=== PATIENT | male | born 1950 | race Caucasian/White ===

== ENCOUNTER 2018-05-03 10:59 | Emergency (ER) | payer MEDICARE, BC ==
[2018-05-03 11:12] VITALS: TEMP 97.9
--- NOTE | 2018-05-03 11:36 | ED ---
General Adult HPI - General Chief complaint: Arrhythmia/Palpitations Stated complaint: irreg heart beat Time Seen by Provider: 05/03/18 11:00 Source: patient, RN notes reviewed Mode of arrival: wheelchair Limitations: no limitations - History of Present Illness Initial comments: This is a 67-year-old male who presents to the emergency department complaining of palpitations. Patient states he has a history of PVCs. Patient states these palpitations come and go but they're much more frequent than normal and they are consistent with his PVCs. Patient denies any chest pain or difficulty breathing or shortness of breath. Patient denies any abdominal pain patient denies nausea vomiting diarrhea. Patient denies headache patient denies numbness weakness. Patient denies lightheadedness or dizziness. Patient denies any recent fever chills. Patient states he drinks a bottle of wine every night. Patient denies any smoking patient denies any increased caffeine intake patient denies any drug use patient denies any gyhp-[id number] decongestants. - Related Data Home Medications Medication Instructions Recorded Confirmed Aspirin EC [Ecotrin] 325 mg PO DAILY 05/03/18 05/03/18 Atorvastatin [Lipitor] 40 mg PO DAILY 05/03/18 05/03/18 Hydrochlorothiazide [Hydrodiuril] 25 mg PO DAILY 05/03/18 05/03/18 Ramipril [Altace] 5 mg PO DAILY 05/03/18 05/03/18 Allergies Allergy/AdvReac Type Severity Reaction Status Date / Time No Known Allergies Allergy Verified 05/03/18 11:11 Review of Systems ROS Statement: Those systems with pertinent positive or pertinent negative responses have been documented in the HPI. ROS Other: All systems not noted in ROS Statement are negative. 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 Patient is nontoxic and well- hydrated and is in no acute distress. ENT: Neck is soft and supple. No significant lymphadenopathy is noted. Oropharynx is clear. Moist mucous membranes. Neck has full range of motion without eliciting any pain. EYES: The sclera were anicteric and conjunctiva were pink and moist. Extraocular movements were intact and pupils were equal round and reactive to light. Eyelids were unremarkable. PULMONARY: Unlabored respirations. Good breath sounds bilaterally. No audible rales rhonchi or wheezing was noted. CARDIOVASCULAR: There is a regular rate and rhythm without any murmurs gallops or rubs. Patient is having extrasystoles about every 5-10 seconds ABDOMEN: Soft and nontender with normal bowel sounds. No palpable organomegaly was noted. There is no palpable pulsatile mass. SKIN: Skin is clear with no lesions or rashes and otherwise unremarkable. NEUROLOGIC: Patient is alert and oriented x3. Cranial nerves II through XII are grossly intact. Motor and sensory are also intact. Normal speech, volume and content. Symmetrical smile. MUSCULOSKELETAL: Normal extremities with adequate strength and full range of motion. No lower extremity swelling or edema. No calf tenderness. LYMPHATICS: No significant lymphadenopathy is noted PSYCHIATRIC: Normal psychiatric evaluation. Limitations: no limitations Course Vital Signs 05/03/18 11:08 Temperature 97.9 F Pulse Rate 69 Respiratory 18 Rate Blood Pressure 154/68 O2 Sat by Pulse 99 Oximetry Medical Decision Making - Medical Decision Making EKG shows sinus rhythm with frequent PVCs at a rate of 66 bpm AR interval is 1: 30 QRS is 88 QT interval 448 QTC is 469. Patient's EKG shows no ST segment elevation or depression or T wave abnormalities are noted. Chest x-ray shows no acute abnormality. Patient an ounces when he feels a palpitation and is correlating with the PVCs therefore believe he is feeling his PVCs suggested. Be more frequent than normal. - Lab Data Result diagrams: 05/03/18 11:30 05/03/18 11:30 Lab Results 05/03/18 05/03/18 05/03/18 Range/Units 11:30 11:30 11:30 WBC 6.1 (3.8-10.6) k/uL RBC 4.32 (4.30-5.90) m/uL Hgb 14.1 (13.0-17.5) gm/dL Hct 42.3 (39.0-53.0) % MCV 97.9 D (80.0-100.0) fL MCH 32.6 (25.0-35.0) pg MCHC 33.3 (31.0-37.0) g/dL RDW 13.0 (11.5-15.5) % Plt Count 203 (150-450) k/uL Neutrophils % 55 % Lymphocytes % 31 % Monocytes % 7 % Eosinophils % 4 % Basophils % 1 % Neutrophils # 3.4 (1.3-7.7) k/uL Lymphocytes # 1.9 (1.0-4.8) k/uL Monocytes # 0.4 (0-1.0) k/uL Eosinophils # 0.2 (0-0.7) k/uL Basophils # 0.0 (0-0.2) k/uL PT (9.0-12.0) sec INR (<1.2) APTT (22.0-30.0) sec Sodium 139 (137-145) mmol/L Potassium 4.0 (3.5-5.1) mmol/L Chloride 103 (98-107) mmol/L Carbon Dioxide 28 (22-30) mmol/L Anion Gap 8 mmol/L BUN 16 (9-20) mg/dL Creatinine 0.75 (0.66-1.25) mg/dL Est GFR (CKD-EPI)AfAm >90 (>60 ml/min/1.73 sqM) Est GFR (CKD-EPI)NonAf >90 (>60 ml/min/1.73 sqM) Glucose 102 H (74-99) mg/dL Calcium 9.6 (8.4-10.2) mg/dL Magnesium 2.1 (1.6-2.3) mg/dL Total Bilirubin 0.9 (0.2-1.3) mg/dL AST 30 (17-59) U/L ALT 29 (21-72) U/L Alkaline Phosphatase 60 (38-126) U/L Total Creatine Kinase 101 (55-170) U/L CK-MB (CK-2) 1.2 (0.0-2.4) ng/mL CK-MB (CK-2) Rel Index 1.2 Troponin I <0.012 (0.000-0.034) ng/mL Total Protein 6.8 (6.3-8.2) g/dL Albumin 4.2 (3.5-5.0) g/dL TSH 1.850 (0.465-4.680) mIU/L Free T4 1.13 (0.78-2.19) ng/dL 05/03/18 Range/Units 11:30 WBC (3.8-10.6) k/uL RBC (4.30-5.90) m/uL Hgb (13.0-17.5) gm/dL Hct (39.0-53.0) % MCV (80.0-100.0) fL MCH (25.0-35.0) pg MCHC (31.0-37.0) g/dL RDW (11.5-15.5) % Plt Count (150-450) k/uL Neutrophils % % Lymphocytes % % Monocytes % % Eosinophils % % Basophils % % Neutrophils # (1.3-7.7) k/uL Lymphocytes # (1.0-4.8) k/uL Monocytes # (0-1.0) k/uL Eosinophils # (0-0.7) k/uL Basophils # (0-0.2) k/uL PT 10.9 (9.0-12.0) sec INR 1.1 (<1.2) APTT 23.1 (22.0-30.0) sec Sodium (137-145) mmol/L Potassium (3.5-5.1) mmol/L Chloride (98-107) mmol/L Carbon Dioxide (22-30) mmol/L Anion Gap mmol/L BUN (9-20) mg/dL Creatinine (0.66-1.25) mg/dL Est GFR (CKD-EPI)AfAm (>60 ml/min/1.73 sqM) Est GFR (CKD-EPI)NonAf (>60 ml/min/1.73 sqM) Glucose (74-99) mg/dL Calcium (8.4-10.2) mg/dL Magnesium (1.6-2.3) mg/dL Total Bilirubin (0.2-1.3) mg/dL AST (17-59) U/L ALT (21-72) U/L Alkaline Phosphatase (38-126) U/L Total Creatine Kinase (55-170) U/L CK-MB (CK-2) (0.0-2.4) ng/mL CK-MB (CK-2) Rel Index Troponin I (0.000-0.034) ng/mL Total Protein (6.3-8.2) g/dL Albumin (3.5-5.0) g/dL TSH (0.465-4.680) mIU/L Free T4 (0.78-2.19) ng/dL Disposition Clinical Impression: Ventricular premature beats Disposition: HOME SELF-CARE Condition: Good Instructions: Premature Ventricular Contractions (ED) Additional Instructions: . Patient should return to emergency department for any new or worsening symptoms. Patient should reduce the alcohol intake Is patient prescribed a controlled substance at d/c from ED?: No Referrals: Cayden Bernabe MD [Primary Care Provider] - 1-2 days Time of Disposition: 12:43
--- NOTE | 2018-05-03 11:54 | XR ---
EXAMINATION TYPE: XR chest 2V DATE OF EXAM: 05/03/2018 HISTORY: dysrhythmia. REFERENCE: NONE. FINDINGS: The lungs are overinflated but clear. Pleural space are clear. The heart is not enlarged. IMPRESSION: COPD.
[2018-05-03 12:03] LABS: Basophils % (A) 1 %; Eosinophils # (A) 0.2 k/uL (0-0.7); Eosinophils % (A) 4 %; HCT 42.3 % (39.0-53.0); HGB 14.1 gm/dL (13.0-17.5); Lymphocytes # (A) 1.9 k/uL (1.0-4.8); Lymphocytes % (A) 31 %; MCH 32.6 pg (25.0-35.0); MCHC 33.3 g/dL (31.0-37.0); Monocytes # (A) 0.4 k/uL (0-1.0); Monocytes % (A) 7 %; Neutrophils # (A) 3.4 k/uL (1.3-7.7); Neutrophils % (A) 55 %; Platelet Count 203 k/uL (150-450); RBC 4.32 m/uL (4.30-5.90); WBC 6.1 k/uL (3.8-10.6)
[2018-05-03 12:07] LABS: MCV 97.9 fL (80.0-100.0)
[2018-05-03 12:10] LABS: ALT 29 U/L (21-72); AST 30 U/L (17-59); Albumin 4.2 g/dL (3.5-5.0); Alkaline Phosphatase 60 U/L (38-126); Anion Gap 8 mmol/L; Blood Urea Nitrogen 16 mg/dL (9-20); Calcium 9.6 mg/dL (8.4-10.2); Carbon Dioxide 28 mmol/L (22-30); Chloride 103 mmol/L (98-107); Glucose 102 mg/dL (74-99); Magnesium 2.1 mg/dL (1.6-2.3); Sodium 139 mmol/L (137-145); Total Bilirubin 0.9 mg/dL (0.2-1.3); Total Protein 6.8 g/dL (6.3-8.2)
[2018-05-03 12:12] LABS: INR 1.1 (<1.2); Partial Thromboplastin Time 23.1 sec (22.0-30.0); Prothrombin Time 10.9 sec (9.0-12.0)
[2018-05-03 12:21] LABS: Creatine Kinase 101 U/L (55-170)
[2018-05-03 12:26] LABS: T4, Free (Free Thyroxine) 1.13 ng/dL (0.78-2.19)
[2018-05-03 12:34] LABS: Creatine Kinase MB 1.2 ng/mL (0.0-2.4); Troponin I <0.012 ng/mL (0.000-0.034)
[2018-05-03 13:02] VITALS: BP 135/73; PULSE 58; RESP 16
== END 2018-05-03 13:00 | disposition home or self-care (01) ==
LOC: EC 10:59
DX: I49.3 Ventricular premature depolarization (principal); E78.5 Hyperlipidemia, unspecified; I10 Essential (primary) hypertension; Z79.82 Long term (current) use of aspirin; Z79.899 Other long term (current) drug therapy
CPT/HCPCS: 36415; 71046; 80053; 82550; 82553; 83735; 84439; 84443; 84484; 85025; 85610; 85730; 93005; 99285

== ENCOUNTER → 2018-07-10 | Outpatient (CLI) | payer MEDICARE, BC ==
--- NOTE | 2018-07-10 13:42 | CONS ---
CONSULTATION DATE OF SERVICE: 07/10/2018 A 67-year-old gentleman has been evaluated in the sleep center for possible obstructive sleep apnea-hypopnea syndrome. HISTORY OF PRESENT ILLNESS/SLEEP-WAKE EVALUATION: Patient usual sleep schedule from 10 p.m. until 7:38 a.m. Usually no problems with falling asleep. She sleeps on the side position. Does not have TV in bedroom. According to his , he snores and has episodes of stopped breathing during the sleep, especially after using alcohol. He wakes up from sleep up to 3 times with nocturia. No history of hypnagogic hallucinations, sleep paralysis or cataplexy. During the sleep, his heart rate goes down to 40. The patient has history of cardiac arrhythmia several months ago with significant amount of extra systoles and it was active for several weeks. [place] Sleepiness Scale is 4. Usually patient does not take any naps. 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 PAST SURGICAL HISTORY: Surgical treatment of squamous cell carcinoma and some surgery history of the skin of the patient's head, probably benign. Patient does not know the exact diagnosis. MEDICATIONS: Ramipril, hydrochlorothiazide atorvastatin, aspirin. SOCIAL HISTORY: Negative for smoking. Alcohol consumption: Presently patient decreased amount of alcohol from one bottle at night to two glasses of wine at night. FAMILY HISTORY: Hypertension, angina, heart problems, hyperlipidemia, cancer. REVIEW OF SYSTEMS: Awakenings from sleep up to 3 times with nocturia, episodes of bradycardia and cardiac arrhythmia. PHYSICAL EXAMINATION: During physical exam, a gentleman without distress. VITAL SIGNS: BP 131/78, HR 63, RR 14, height 5-1/2, weight 130.8, body mass index 19.4, temperature 98.3, oxygen saturation at room air 100%. HEENT: PERRLA, EOMI. Oropharynx low position of soft palate, short distance between soft palate and posterior pharyngeal wall. Neck is 14 inches in circumference. LUNGS: Clear to percussion and to auscultation. Good air exchange. No wheezing or rhonchi. HEART: S1, S2 regular. No murmurs, gallops, or rubs. ABDOMEN: Soft and nontender. Bowel sounds are present. No organomegaly appreciated. EXTREMITIES: No clubbing or cyanosis. DIAGNOSTIC TECH: Awake, alert, and oriented X3. Cranial nerves 2 to 7 intact. There is no fasciculation or atrophy. noted. No focal deficits observed. IMPRESSION: 1. Snoring, witnessed episodes of stopped breathing during the sleep. Small oropharyngeal air space awakenings from sleep with nocturia of possible obstructive sleep apnea-hypopnea syndrome. 2. History of cardiac arrhythmia. 3. Obesity. 4. Hypertension. 5. Hyperlipidemia. 6. Status post surgical treatment of squamous cell carcinoma of the skin of right leg. 7. Status post skin surgery on the head. PLAN: 1. Polysomnography for evaluation of patient's breathing during sleep. 2. CPAP/BiPAP titration if sleep study confirms obstructive sleep apnea-hypopnea syndrome. 3. Preferable position during sleep on the side. 4. No driving if patient feels any sleepiness. 5. I will see patient for follow up visit to explain results of testing and following plan. Thank you very much for referring this patient for consultation. Sincerely, Hilton Jiang MD, PhD, FAASM Diplomat of [place] [employer] [place] [employer] Assistant of [facility] [place] MMODL / DREN: [id number] /
== END | disposition home or self-care (01) ==
LOC: SLEEP 11:36
PROVIDERS: ATTEND Internal Medicine
DX: R06.83 Snoring (principal); R35.1 Nocturia; J39.2 Other diseases of pharynx; I49.9 Cardiac arrhythmia, unspecified; E66.9 Obesity, unspecified; I10 Essential (primary) hypertension; E78.5 Hyperlipidemia, unspecified; Z85.828 Personal history of other malignant neoplasm of skin; Z98.890 Other specified postprocedural states; Z79.82 Long term (current) use of aspirin; Z79.899 Other long term (current) drug therapy; Z68.1 Body mass index [BMI] 19.9 or less, adult
CPT/HCPCS: 99211

== ENCOUNTER → 2021-08-07 | Outpatient (CLI) | payer MEDICARE, BC ==
--- NOTE | 2021-08-07 18:52 | US ---
EXAMINATION TYPE: US st tissue neck DATE OF EXAM: 08/07/2021 COMPARISON: NONE CLINICAL HISTORY: 70-year-old male R22.1 NECK MASS. Team Member notes: Patient states physician felt that he had possible enlarged lateral neck masses. TECHNIQUE: Targeted ultrasound examination along the lateral aspect of both sides of the neck. FINDINGS: No enlarged lymph notes. No abnormal mass is identified. No abnormal fluid collection. IMPRESSION: NO SUSPICIOUS LYMPHADENOPATHY OR MASS IS SONOGRAPHICALLY IDENTIFIED ON EITHER SIDE OF THE NECK. IF TH ERE IS A PERSISTENT OR ENLARGING PALPABLE ABNORMALITY BY CLINICAL ASSESSMENT, CONSIDER CONTRAST ENHAN RADHA CT NECK.
== END | disposition home or self-care (01) ==
LOC: RADUSWWP 15:32
PROVIDERS: ATTEND Family Medicine
DX: R22.1 Localized swelling, mass and lump, neck (principal)
CPT/HCPCS: 76536

== ENCOUNTER → 2023-10-09 | Outpatient (CLI) | payer MEDICARE ==
--- NOTE | 2023-10-09 11:02 | MR ---
EXAMINATION TYPE: MR Prostate wo/w con DATE OF EXAM: 10/09/2023 8:10 AM COMPARISON: None. CLINICAL INDICATION:Male, 72 years old with history of C61 Prostate; Prostate cancer. TECHNIQUE: Multi-planar, multi-sequence imaging of the pelvis is performed prior to and following the uncomplicated administration of bolus intravenous gadolinium. CONTRAST: 6 Gadavist Interpretive Criteria: PI-RADS v2.1 SERUM PSA: 4.07 on 08/17/2023. 3.51 on 02/11/2023. SURGICAL PATHOLOGY: Positive biopsy 10/06/2021 involving the majority of the biopsy samples. FINDINGS: Prostatic dimensions: 5.2 x 4.3 x 3.0 cm. "Bullet" Volume:43.90 (PSA density=0.09 ng/mL/mL) CENTRAL GLAND (Central and Transition Zones/CZ+TZ): Multiple bilateral, heterogenous appearing hypertrophic stromal nodules, without suspicious lesion. M edian lobe hypertrophy with protrusion into the base of the bladder. (PI-RADS 2) PERIPHERAL ZONE (PZ): Bilateral linear, indistinct wedgelike areas of low ADC, and low T2 signal, No evidence of masslike a bnormality, or localized perfusional hypervascularity, to further suggest a focus of clinically signi ficant prostate cancer. (PI-RADS 2) SEMINAL VESICLES (SV): Symmetric and unremarkable. PERIPROSTATIC TISSUES: Unremarkable. LYMPH NODES: There is a prominent left pelvic sidewall lymph node measuring up to 5 mm. REMAINING PELVIS: Bladder wall is within normal limits given distention. No abnormal free or organized intrapelvic fluid collection. No pathologic bowel dilation or mural thickening. No hernia visualized OSSEOUS STRUCTURES: No suspicious osseous abnormality. IMPRESSION: 1. No specific features for high-risk prostate cancer. Maximum PI-RADS score: 2. 2. Left pelvic sidewall lymph node consider PET/CTs gallium-68 PSMA scan to evaluate for metabolic up take. 3. Mild BPH, estimated gland volume 43.90 mL.
== END | disposition home or self-care (01) ==
LOC: RADMRIMAIN 07:02
PROVIDERS: ATTEND Urology
DX: C61 Malignant neoplasm of prostate (principal); N40.0 Benign prostatic hyperplasia without lower urinary tract symptoms
CPT/HCPCS: 72197; A9585

== ENCOUNTER → 2024-09-04 | Outpatient (CLI) | payer MEDICARE ==
--- NOTE | 2024-09-04 16:27 | US ---
EXAMINATION TYPE: US carotid duplex BILAT DATE OF EXAM: 09/04/2024 COMPARISON: NONE CLINICAL INDICATION: Male, 73 years old with history of I65.23 STENOSIS; Additional History: .... TECHNIQUE: Grayscale, color Doppler and spectral Doppler evaluation of the bilateral carotid systems and vertebral arteries. Indirect Doppler criteria was utilized. FINDINGS: EXAM MEASUREMENTS: RIGHT: Peak Systolic Velocity (PSV) cm/sec ----- Right CCA: 95.5 ----- Right ICA: 107 ----- Right ECA: 64.9 ICA/CCA ratio: 1.1 RIGHT: End Diastole cm/sec ----- Right CCA: 16.7 ----- Right ICA: 27.0 ----- Right ECA: 0.0 LEFT: Peak Systolic Velocity (PSV) cm/sec ----- Left CCA: 139 ----- Left ICA: 101 ----- Left ECA: 101 ICA/CCA ratio: 0.7 LEFT: End Diastole cm/sec ----- Left CCA: 23.7 ----- Left ICA: 29.6 ----- Left ECA: 8.4 VERTEBRALS (direction of flow): Right Vertebral: Antegrade Left Vertebral: Antegrade Rhythm: Normal PSYCHIATRIC AIDE NOTES: Slightly elevated velocities see at RT Bulb and LT Distal CCA, No significant sten osis seen No plaque seen Color Doppler imaging shows patency with blood flow throughout the carotid artery. Spectral waveforms are within normal limits. IMPRESSION: Right: No hemodynamically significant stenosis. Left: No hemodynamically significant stenosis. Criteria for Assigning % of Stenosis / Diameter reduction (Estimation based on the indirect measurements of the internal carotid artery velocities (ICA PSV). 1. Normal (no stenosis)=ICA PSV < 125 cm/s: ratio < 2.0: ICA EDV<40 cm/s. 2. Less than 50% stenosis=ICA PSV < 125 cm/s: ratio < 2.0: ICA EDV<40 cm/s. 3. 50 to 69% stenosis=ICA PSV of 125 to 230 cm/s: ration 2.0 ? 4.0: ICA EDV 40-100 cm/s. 4. Greater than 70% stenosis to near occlusion= ICA PSV > 230 cm/s: ratio > 4.0: ICA EDV > 100 cm/s. 5. Near occlusion= ICA PSV velocities may be low or undetectable: variable ratio and ICA EDV. 6. Total occlusion=unable to detect flow. [facility], , 09/04/2024 4:25 PM
== END | disposition home or self-care (01) ==
LOC: RADUSWWP 15:23
PROVIDERS: ATTEND Internal Medicine
DX: I65.23 Occlusion and stenosis of bilateral carotid arteries (principal)
CPT/HCPCS: 93880